=== PATIENT | female | born 1990 | race African-American/Black ===

== ENCOUNTER 2018-10-30 21:37 | Emergency (ER) | payer OTHER ==
[~2018-10-30] VITALS: Ht 180.3 cm; Wt 64.3 kg
[2018-10-30 21:41] VITALS: Ht 180.3 cm; Wt 64.3 kg
[2018-10-31] MEDS ORDERED: LORAZEPAM 1 MG TAB PO ONE ×2 (04:00→12:00)
[2018-10-31] MEDS ORDERED: VENLAFAXINE 75 MG TABLET PO SCH (09:00)
[2018-10-31] MEDS ORDERED: ONDANSETRON (ODT) 4 MG TAB ODT STA (09:52)
[2018-10-31 21:52] VITALS: BP 131/80; PULSE 78; RESP 16
== END 2018-10-31 21:53 ==
LOC: E/R 21:37
DX: F10.920 Alcohol use, unspecified with intoxication, uncomplicated (principal); F32.1 Major depressive disorder, single episode, moderate
CPT/HCPCS: 36415; 80053; 80307; 81001; 81025; 85025; Z7502; Z7610; 99285